=== PATIENT | female | born 1960 | race Caucasian/White ===

== ENCOUNTER 2024-03-07 10:08 | Emergency (ER) | payer BC, MEDICARE, OTHER ==
[~2024-03-07] VITALS: Ht 157.5 cm; Wt 73.2 kg
[2024-03-07] MEDS ORDERED: ONDANSETRON 4MG 2ML VIAL IV ONE ×2 (10:25→10:30)
[2024-03-07 10:27] VITALS: TEMP 98.6
[2024-03-07] MEDS: MORPHINE 4 MG/ML 1ML VIAL IV PRN (10:36)
[2024-03-07] MEDS ORDERED: MORPHINE 4 MG/ML 1ML VIAL IV PRN (12:00)
[2024-03-07] MEDS: MORPHINE 2 MG/ML 1ML VIAL IV ONE (14:46)
[2024-03-07 15:01] VITALS: BP 119/59; O2SAT 96
== END 2024-03-07 15:04 | disposition home or self-care (01) ==
LOC: M ED 10:08 → EDBD 10:08 → M ED 15:04
DX: S40.011A Contusion of right shoulder, initial encounter (principal); S30.0XXA Contusion of lower back and pelvis, initial encounter; W01.0XXA Fall on same level from slipping, tripping and stumbling without subsequent striking against object, initial encounter; Y92.009 Unspecified place in unspecified non-institutional (private) residence as the place of occurrence of the external cause; Y93.9 Activity, unspecified; Y99.9 Unspecified external cause status; E11.9 Type 2 diabetes mellitus without complications; C43.9 Malignant melanoma of skin, unspecified; F17.200 Nicotine dependence, unspecified, uncomplicated; Z88.0 Allergy status to penicillin; Z88.1 Allergy status to other antibiotic agents; Z88.8 Allergy status to other drugs, medicaments and biological substances; Z88.3 Allergy status to other anti-infective agents; Z91.013 Allergy to seafood